=== PATIENT | female | born 1995 | race African-American/Black ===

== ENCOUNTER 2017-12-19 11:34 | Emergency (ER) | payer OTHER ==
[~2017-12-19] VITALS: Ht 149.9 cm; Wt 69.4 kg
[2017-12-19] MEDS ORDERED: NAPROSYN500 MG PO (12:19)
[2017-12-19 12:34] VITALS: BP 145/64
== END 2017-12-19 12:36 | disposition home or self-care (01) ==
LOC: M.ERS 11:34
DX: S93.402A Sprain of unspecified ligament of left ankle, initial encounter (principal); X58.XXXA Exposure to other specified factors, initial encounter; Y93.89 Activity, other specified; Y92.89 Other specified places as the place of occurrence of the external cause; Y99.8 Other external cause status